=== PATIENT | female | born 1960 | race Caucasian/White ===

== ENCOUNTER 2017-03-24 10:41 | Outpatient (CLI) | payer BC ==
[2017-03-24 11:27] LABS: ALBUMIN 4.2 g/dL (3.4-5.0); BILIRUBIN,TOTAL 0.4 mg/dL (0.2-1.0); CALCIUM, SERUM 9.1 mg/dL (8.5-10.1); CREATININE 0.7 mg/dL (0.6-1.3); POTASSIUM 4.1 mmol/L (3.5-5.1); TOTAL PROTEIN, SERUM 7.6 g/dL (6.4-8.2)
== END 2017-03-24 23:59 | disposition home or self-care (01) ==
LOC: LAB 10:41
PROVIDERS: ATTEND Internal Medicine Cardiovascular Disease
DX: E78.5 Hyperlipidemia, unspecified (principal); R53.83 Other fatigue
CPT/HCPCS: 36415; 80053-TC; 80061-TC

== ENCOUNTER 2017-06-16 10:44 | Outpatient (CLI) | payer BC ==
[2017-06-16 11:42] LABS: CHOLESTEROL 206 mg/dL (<200); HDL CHOLESTEROL 86 mg/dL (40-60); LDL 107 mg/dL (0-99); TRIGLYCERIDES 57 mg/dL (30-150)
== END 2017-06-16 23:59 | disposition home or self-care (01) ==
LOC: LAB 10:44
PROVIDERS: ATTEND Internal Medicine Cardiovascular Disease
DX: E78.5 Hyperlipidemia, unspecified (principal)
CPT/HCPCS: 36415; 80061-TC

== ENCOUNTER 2017-12-14 11:14 | Outpatient (CLI) | payer BC ==
[2017-12-14 12:26] LABS: CHOLESTEROL 206 mg/dL (<200); HDL CHOLESTEROL 83 mg/dL (40-60); LDL 113 mg/dL (0-99); TRIGLYCERIDES 65 mg/dL (30-150)
== END 2017-12-14 23:59 | disposition home or self-care (01) ==
LOC: LAB 11:14
PROVIDERS: ATTEND Internal Medicine Cardiovascular Disease
DX: E78.5 Hyperlipidemia, unspecified (principal)
CPT/HCPCS: 36415; 80061-TC